=== PATIENT | male | born 1970 | race Caucasian/White ===

== ENCOUNTER → 2017-10-31 09:06 | Outpatient (CLI) | payer OTHER, SELFPAY ==
--- NOTE | 2017-10-31 09:19 | NM_ITS ---
CLINICAL: 47-year-old male with history of hypercalcemia. 99m Tc SESTAMIBI DUAL PHASE PARATHYROID SCINTIGRAPHY COMPARISON: None available FINDINGS: Following the intravenous administration of 26.7 mCi of 99m Tc sestamibi, image acquisitions of the anterior neck at 20 minutes and 2.0 hours post radiopharmaceutical provision reveal: 1. Immediate static blood pool acquisitions demonstrate distribution of the radiopharmaceutical in the right-left thyroid colloid. 2. Delayed images depict persistent focal increased tracer concentration noted in the region of the inferior pole of the right thyroid bed with near complete washout of the radiopharmaceutical otherwise noted in the remaining thyroid parenchyma. NM/Parathyroid Scan IMPRESSION: 1. ABNORMAL 99m Tc SESTAMIBI PARATHYROID IMAGING DUAL PHASE EXAMINATION. 2. There is scintigraphic evidence of an apparent parathyroid adenoma involving the inferior pole of the right thyroid bed as described above. Electronically Signed: Js Canas DO at 11:50 EDT Tel , Service support ,
== END ==
DX: E21.3 Hyperparathyroidism, unspecified (principal)
CPT/HCPCS: 78070; A9500